=== PATIENT | male | born 1930 | race Caucasian/White ===

== ENCOUNTER 2017-01-21 12:25 | Emergency (ER) | payer MEDICARE, OTHER ==
[2017-01-21] MEDS ORDERED: Sodium Chloride 0.9% 10 ML Syringe FLUSH PRN (12:42)
[2017-01-21] MEDS ORDERED: Diltiazem 25 MG/5 ML SDV IVPUSH ONE (12:51)
--- NOTE | 2017-01-21 13:05 | EDM.PDOC ---
ED HPI GENERAL MEDICAL PROBLEM - General Chief Complaint: Syncope Stated Complaint: syncopal episode x 2 Time Seen by Provider: 01/21/17 12:42 Source of Information: Reports: EMS, Other ([facility] staff) History Limitations: Reports: Altered Mental Status (dementia) - History of Present Illness INITIAL COMMENTS - FREE TEXT/NARRATIVE: Patient sent here by EMS for evaluation after having two syncopal episodes since 11am this morning. He does have dementia, and upon arrival has no idea why he was sent to the ER. He has no recollection of syncopal events. Patient denies feeling poorly/ill and also denies pain. ROS performed and he denied changes during entire ROS. When asked, patient does not recall that he lives at OR facility. He thinks he is in [facility]. [place]. Reported to us that he has first event while at lunch. Became incontinent during event. Uncertain as to how long he was actually unresponsive. Was then taken to his room to get cleaned up and had second event there. EMS called. EMS crew reports that patient was also briefly unresponsive for them. O2 sats on room air at one point reportedly 87%. No acute observed SOB or other symptoms. No observed seizure activity. Heart rate noted to be running between 110-130s on monitor. Patient denied palpitations/chest pain/acute SOB. Initial EKG showed what appeared to be Afib with RVR. No prior EKGs on file at hospital or at [facility] available for comparison. Review of patient's chart shows that he has chronic Afib. OR does not report to us that patient has had any syncopal episodes prior to today. - Related Data Allergies Allergy/AdvReac Type Severity Reaction Status Date / Time indomethacin Allergy Other Verified 01/21/17 12:58 Penicillins Allergy Other Verified 01/21/17 12:58 simvastatin Allergy Other Verified 01/21/17 12:58 Home Meds: Home Meds Acetaminophen [Tylenol] 650 mg PO Q4HR PRN 01/21/17 [History] Carvedilol 25 mg PO BID 01/21/17 [History] Cyanocobalamin (Vitamin B12) [Vitamin B12] 1 tab PO QPM 01/21/17 [History] Ferrous Sulfate 1 tab PO QPM 01/21/17 [History] Furosemide [Lasix] 20 mg PO DAILY 01/21/17 [History] Metolazone 2.5 mg PO MOFR@0800 01/21/17 [History] Warfarin [Coumadin] 2 mg PO ASDIRECTED 01/21/17 [History] Warfarin [Coumadin] 2.5 mg PO ASDIRECTED 01/21/17 [History] hydrALAZINE [Apresoline] 10 mg PO BID 01/21/17 [History] Past Medical History HEENT History: Reports: Hard of Hearing Cardiovascular History: Reports: Afib, Aneurysm (AAA), CAD, 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), High Cholesterol Respiratory History: Reports: COPD Gastrointestinal History: Reports: Diverticulosis Genitourinary History: Reports: Chronic Renal Insuffiency (Hypertensive Chronic Kidney Disease), Renal Calculus Musculoskeletal History: Reports: Gout, Osteoarthritis, Other (See Below) ( generalized weakness) Neurological History: Reports: Other (See Below) (paresthesias skin) Psychiatric History: Reports: Dementia Endocrine/Metabolic History: Reports: Hyperparathyroidism Hematologic History: Reports: Anemia, B12 Deficiency - Infectious Disease History Infectious Disease History: Reports: MRSA - Past Surgical History Musculoskeletal Surgical History: Reports: Hip Replacement (right) - History Comment History Comment: History of pulmonary nodule, polyp of stomach/duodenum, pancreatic cyst Social & Family History - Family History Family Medical History: Unobtainable - Tobacco Use Smoking Status *Q: Former Smoker ED ROS GENERAL - Review of Systems Review Of Systems: ROS reveals no pertinent complaints other than HPI. (Unable to obtain accurately given patient's dementia. Patient denies problems/ changes. See HPI) - Physical Exam Exam: See Below Exam Limited By: No Limitations General Appearance: Alert, No Apparent Distress, Thin Eye Exam: Bilateral Eye: EOMI, PERRL Ears: Normal External Exam, Normal Canal Nose: Normal Inspection, Normal Mucosa, No Blood Throat/Mouth: Normal Oropharynx, Normal Voice, No Airway Compromise, Perioral Cyanosis, Other (dentures) Head Exam: Atraumatic, Normocephalic Neck: Normal Inspection, Supple, Non-Tender, Full Range of Motion. No: Carotid Bruit, Lymphadenopathy (L), Lymphadenopathy (R) Respiratory/Chest: No Respiratory Distress, Lungs Clear, Normal Breath Sounds, No Accessory Muscle Use, Chest Non-Tender Cardiovascular: No Edema, No Murmur, Tachycardia, Irregularly Irregular GI/Abdominal: Normal Bowel Sounds, Soft, Non-Tender, No Distention, No Mass (Male) Exam: Deferred Rectal (Males) Exam: Deferred Neuro Exam (Abbreviated): Alert, Memory Loss Recent Events, Other (Diminished strength x4. Strength and tone symmetric. ) DTR: 1+: Bicep (R), Bicep (L), Patella (R), Patella (L) Back Exam: No: CVA Tenderness (L), CVA Tenderness (R), Muscle Spasm, Paraspinal Tenderness, Vertebral Tenderness Extremities: Non-Tender, No Pedal Edema, Slow Capillary Refill (nail beds. ) Psychiatric: Normal Affect, Normal Mood Skin Exam: Dry, Cool (hands and feet) EKG INTERPRETATION EKG Date: 01/21/17 Time: 12:30 Rhythm: A-Fib Rate (Beats/Min): 116 [place]: Normal P-Wave: Variable QRS: RBBB ST-T: Other (No obvious acute ST elevation) Comparison: NA - No Prior EKG Course - Vital Signs Last Recorded V/S: Last Vital Signs Temp 36.4 C 01/21/17 15:40 Pulse 98 01/21/17 15:40 Resp 20 01/21/17 15:40 BP 127/82 01/21/17 15:40 Pulse Ox 100 01/21/17 15:40 - Orders/Labs/Meds Orders: Active Orders 24 hr Category Date Time Status EKG Documentation Completion [RC] ASDIRECTED Care 01/21/17 12:44 Active Adame Catheter Insertion [Insert Urinary Catheter] [OM. Care 01/21/17 14:00 Ordered PC] Q24H Urinary Catheter Assessment [RC] ASDIRECTED Care 01/21/17 13:57 Active Chest 1V Frontal [CR] Stat Exams 01/21/17 14:32 Taken Sodium Chloride 0.9% [Normal Saline] 1,000 ml Med 01/21/17 15:30 Active IV ASDIRECTED Sodium Chloride 0.9% [Saline Flush] Med 01/21/17 12:42 Active 10 ml FLUSH ASDIRECTED PRN Saline Lock Insert [OM.PC] Stat Oth 01/21/17 12:43 Ordered Medication Orders Sodium Chloride (Normal Saline) 1,000 mls @ 100 mls/hr IV ASDIRECTED ALFONSO Last Admin: 01/21/17 15:48 Dose: 100 mls/hr Sodium Chloride (Saline Flush) 10 ml FLUSH ASDIRECTED PRN PRN Reason: Keep Vein Open Last Admin: 01/21/17 12:58 Dose: 10 ml Labs: Laboratory Tests 01/21/17 01/21/17 01/21/17 Range/Units 12:50 12:50 12:50 WBC 6.7 (4.0-10.2) K/uL RBC 6.17 H (4.33-5.41) M/uL Hgb 16.6 (13.1-16.8) g/dL Hct 51.1 H (39.0-49.0) % MCV 82.8 L (84.0-98.0) fL MCH 26.9 L (28.2-33.3) pg MCHC 32.5 (31.7-36.0) g/dL RDW 19.4 H (11.2-14.1) % Plt Count 104 L (150-350) K/uL Neut % (Auto) 67.1 (45.0-80.0) % Lymph % (Auto) 20.9 (10.0-50.0) % [place] % (Auto) 10.1 (2.0-14.0) % Eos % (Auto) 1.4 (0.0-5.0) % Baso % (Auto) 0.5 (0.0-2.0) % Neut # (Auto) 4.47 (1.40-7.00) K/uL Lymph # (Auto) 1.39 (0.50-3.50) K/uL Evangeline # (Auto) 0.67 (0.00-1.00) K/uL Eos # (Auto) 0.09 (0.00-0.50) K/uL Baso # (Auto) 0.03 (0.00-0.20) K/uL PT (9.8-11.7) SEC INR D-Dimer, Quantitative > 5000 H (0-400) ng/mL Sodium 140 (136-145) mmol/L Potassium 5.5 H (3.5-5.1) mmol/L Chloride 101 (98-107) mmol/L Carbon Dioxide 26.0 (21.0-32.0) mmol/L BUN 50 H (7-18) mg/dL Creatinine 2.12 H (0.51-1.17) mg/dL Est Cr Clr Drug Dosing 24.55 mL/min Estimated GFR (MDRD) 30 mL/min Glucose 128 H (74-106) mg/dL Calcium 9.5 (8.5-10.1) mg/dL Magnesium 2.2 (1.8-2.4) mg/dL Total Bilirubin 1.8 H (0.2-1.0) mg/dL AST 28 (15-37) U/L ALT 18 (12-78) U/L Alkaline Phosphatase 118 H (46-116) IU/L Creatine Kinase 69 (26-308) U/L Creatine Kinase Index 0.6 (0.0-2.5) % CK-MB (CK-2) 0.40 (0.00-3.60) ng/mL Troponin I 0.000 (0.000-0.056) ng/mL NT-Pro-B Natriuret Pep 07499 H (0-125) pg/mL Total Protein 8.6 H (6.4-8.2) g/dL Albumin 3.7 (3.4-5.0) g/dL Specimen Type Urine Color Urine Appearance Urine pH (5.0-9.0) Ur Specific [place] (1.005-1.030) Urine Protein (NEGATIVE) mg/dL Urine Glucose (UA) (NEGATIVE) mg/dL Urine Ketones (NEGATIVE) mg/dL Urine Occult Blood (NEGATIVE) Urine Nitrite (NEGATIVE) Urine Bilirubin (NEGATIVE) Urine Urobilinogen (0.2-1.0) E.U./dL Ur Leukocyte Esterase (NEGATIVE) Urine RBC /HPF Urine WBC /HPF Ur Epithelial Cells /LPF Urine Bacteria (NONE TO FEW) /HPF Hyaline Casts (NEGATIVE) /LPF 01/21/17 01/21/17 Range/Units 13:05 14:13 WBC (4.0-10.2) K/uL RBC (4.33-5.41) M/uL Hgb (13.1-16.8) g/dL Hct (39.0-49.0) % MCV (84.0-98.0) fL MCH (28.2-33.3) pg MCHC (31.7-36.0) g/dL RDW (11.2-14.1) % Plt Count (150-350) K/uL Neut % (Auto) (45.0-80.0) % Lymph % (Auto) (10.0-50.0) % [place] % (Auto) (2.0-14.0) % Eos % (Auto) (0.0-5.0) % Baso % (Auto) (0.0-2.0) % Neut # (Auto) (1.40-7.00) K/uL Lymph # (Auto) (0.50-3.50) K/uL [place] # (Auto) (0.00-1.00) K/uL Eos # (Auto) (0.00-0.50) K/uL Baso # (Auto) (0.00-0.20) K/uL PT 19.5 H (9.8-11.7) SEC INR 1.8 D-Dimer, Quantitative (0-400) ng/mL Sodium (136-145) mmol/L Potassium (3.5-5.1) mmol/L Chloride (98-107) mmol/L Carbon Dioxide (21.0-32.0) mmol/L BUN (7-18) mg/dL Creatinine (0.51-1.17) mg/dL Est Cr Clr Drug Dosing mL/min Estimated GFR (MDRD) mL/min Glucose (74-106) mg/dL Calcium (8.5-10.1) mg/dL Magnesium (1.8-2.4) mg/dL Total Bilirubin (0.2-1.0) mg/dL AST (15-37) U/L ALT (12-78) U/L Alkaline Phosphatase (46-116) IU/L Creatine Kinase (26-308) U/L Creatine Kinase Index (0.0-2.5) % CK-MB (CK-2) (0.00-3.60) ng/mL Troponin I (0.000-0.056) ng/mL NT-Pro-B Natriuret Pep (0-125) pg/mL Total Protein (6.4-8.2) g/dL Albumin (3.4-5.0) g/dL Specimen Type Urincath Urine Color Dark yellow Urine Appearance Slightly cloudy Urine pH 5.5 (5.0-9.0) Ur Specific [place] 1.025 (1.005-1.030) Urine Protein >=300 H (NEGATIVE) mg/dL Urine Glucose (UA) 100 H (NEGATIVE) mg/dL Urine Ketones Trace H (NEGATIVE) mg/dL Urine Occult Blood Negative (NEGATIVE) Urine Nitrite Negative (NEGATIVE) Urine Bilirubin Small H (NEGATIVE) Urine Urobilinogen 0.2 (0.2-1.0) E.U./dL Ur Leukocyte Esterase Negative (NEGATIVE) Urine RBC 0-5 /HPF Urine WBC 5-10 H /HPF Ur Epithelial Cells Moderate H /LPF Urine Bacteria Few (NONE TO FEW) /HPF Hyaline Casts Few H (NEGATIVE) /LPF Meds: Medications Generic Name Dose Route Start Last Admin Trade Name Freq PRN Reason Stop Dose Admin Sodium Chloride 1,000 mls @ 100 mls/hr 01/21/17 15:30 01/21/17 15:48 Normal Saline IV 100 mls/hr ASDIRECTED ALFONSO Administration Sodium Chloride 10 ml 01/21/17 12:42 01/21/17 12:58 Saline Flush FLUSH 10 ml ASDIRECTED PRN Administration Keep Vein Open Discontinued Medications Generic Name Dose Route Start Last Admin Trade Name Freq PRN Reason Stop Dose Admin Diltiazem HCl 20 mg 01/21/17 12:51 01/21/17 12:58 Diltiazem IVPUSH 01/21/17 12:52 20 mg ONETIME ONE Administration Sodium Chloride 500 mls @ 250 mls/hr 01/21/17 13:15 01/21/17 13:15 Normal Saline IV 01/21/17 15:14 250 mls/hr ONETIME ONE Administration - Re-Assessments/Exams Free Text/Narrative Re-Assessment/Exam: 01/21/17 14:33 Patient's rate improved after single dose of Cardizem. BP noted to drop slightly. IV bolus of 500ml NS given. Suspect some degree of dehydration as Hgb 16.6 and HCT also elevated. This may in turn have contributed to the elevated heart rate patient has been experiencing today. DDimer over 5000 INR 1.8/subtheraputic K elevated at 5.5 Bun 50 Cr 2.12 Total Bili 1.8 Pro BNP 12,975 Troponin/CKMB within normal limits. Call placed to OR. Spoke with concerning possible patient transfer. They declined to accept patient as they would not be able to perform a VQ scan this afternoon to rule out PE. Call then placed to [facility]. accepted the patient. Patient to be transferred by EMS to [facility] for further evaluation and care. 01/21/17 15:30 Prolonged stay in ER due to EMS transfer for STEMI patient that required more urgent transfer. FLuids given cautiously due to patient's history of CHF. No kayexalate given prior to transfer as dilution from IV fluids anticipated to improve K level. Vital signs stable. Free Text/Narrative Re-Assessment/Exam: 01/21/17 17:29 Patient able to be transferred to [facility] once [facility] ambulance arrived to our facility. Local EMS crew not able to transport patient due to other earlier transfer. Departure - Departure Time of Disposition: 17:31 Disposition: DC/Tfer to [facility] Condition: Fair Clinical Impression: Hyperkalemia, Elevated d-dimer, Subtherapeutic anticoagulation, Atrial fibrillation with RVR, Dehydration Syncope Qualifiers: Syncope type: unspecified Qualified Code(s): R55 - Syncope and collapse Chronic renal disease Qualifiers: Chronic kidney disease stage: unspecified stage Qualified Code(s): N18.9 - Chronic kidney disease, unspecified Dementia Qualifiers: Dementia type: unspecified type Dementia behavioral disturbance: without behavioral disturbance Qualified Code(s): F03.90 - Unspecified dementia without behavioral disturbance - Discharge Information Referrals: Millicent Root MD [Primary Care Provider] - Forms: ED Department Discharge - My Orders Last 24 Hours: My Active Orders 01/21/17 12:42 Sodium Chloride 0.9% [Saline Flush] 10 ml FLUSH ASDIRECTED PRN 01/21/17 12:43 Saline Lock Insert [OM.PC] Stat 01/21/17 12:44 EKG Documentation Completion [RC] ASDIRECTED 01/21/17 13:57 Urinary Catheter Assessment [RC] ASDIRECTED 01/21/17 14:00 Adame Catheter Insertion [Insert Urinary Catheter] [OM.PC] Q24H 01/21/17 14:32 Chest 1V Frontal [CR] Stat 01/21/17 15:30 Sodium Chloride 0.9% [Normal Saline] 1,000 ml IV ASDIRECTED - Assessment/Plan Last 24 Hours: My Active Orders 01/21/17 12:42 Sodium Chloride 0.9% [Saline Flush] 10 ml FLUSH ASDIRECTED PRN 01/21/17 12:43 Saline Lock Insert [OM.PC] Stat 01/21/17 12:44 EKG Documentation Completion [RC] ASDIRECTED 01/21/17 13:57 Urinary Catheter Assessment [RC] ASDIRECTED 01/21/17 14:00 Adame Catheter Insertion [Insert Urinary Catheter] [OM.PC] Q24H 01/21/17 14:32 Chest 1V Frontal [CR] Stat 01/21/17 15:30 Sodium Chloride 0.9% [Normal Saline] 1,000 ml IV ASDIRECTED
[2017-01-21] MEDS ORDERED: Sodium Chloride 0.9% 500 ML IV ONE (13:15)
[2017-01-21] MEDS ORDERED: Sodium Chloride 0.9% 1,000 ML IV SCH (15:30)
== END 2017-01-21 17:45 ==
LOC: LL.ED 12:25
DX: R55 Syncope and collapse (principal); F03.90 Unspecified dementia, unspecified severity, without behavioral disturbance, psychotic disturbance, mood disturbance, and anxiety; I13.0 Hypertensive heart and chronic kidney disease with heart failure and stage 1 through stage 4 chronic kidney disease, or unspecified chronic kidney disease; I50.9 Heart failure, unspecified; N18.9 Chronic kidney disease, unspecified; E86.0 Dehydration; E87.5 Hyperkalemia; I48.91 Unspecified atrial fibrillation; Z87.891 Personal history of nicotine dependence; Z88.0 Allergy status to penicillin; Z79.899 Other long term (current) drug therapy; Z88.8 Allergy status to other drugs, medicaments and biological substances; R79.1 Abnormal coagulation profile
CPT/HCPCS: 36415; 51702; 71010; 80053; 81001; 82550; 82553; 83735; 83880; 84484; 85025; 85379; 85610; 93005; 96361; 96374; 99285; J3490; J7030; J7040; J7050; 93010